=== PATIENT | female | born 1995 | race Caucasian/White ===

== ENCOUNTER 2019-05-12 11:30 | Emergency (ER) | payer OTHER ==
[2019-05-12 11:49] VITALS: BP 108/60
[2019-05-12] MEDS ORDERED: Ibuprofen ADULT LIQ* 600 MG/30 ML UDC PO ONE (12:33)
--- NOTE | 2019-05-12 12:35 | UC ---
General HPI - HPI Summary HPI Summary: pt's son ran into her R thumb this am and hyperextended it. she is c/o pain and states she is unable to bend or straighten the thumb. - History of Current Complaint Chief Complaint: UCUpperExtremity Stated Complaint: RIGHT THUMB CONCERN Time Seen by Provider: 05/12/19 12:29 Hx Obtained From: Patient Hx Last Menstrual Period: 05/08/19 Onset/Duration: Sudden Onset Timing: Constant Pain Intensity: 5 Associated Signs & Symptoms: Negative: Edema - Allergy/Home Medications Allergies/Adverse Reactions: Allergies Allergy/AdvReac Type Severity Reaction Status Date / Time No Known Allergies Allergy Verified 05/12/19 11:49 Home Medications: Home Medications NK [No Home Medications Reported] 05/12/19 [History Confirmed 05/12/19] PMH/Surg Hx/FS Hx/Imm Hx Previously Healthy: Yes - Surgical History Surgical History: Yes Surgery Procedure, Year, and Place: tonsilectomy - Family History Known Family History: Negative: Cardiac Disease, Renal Disease, Respiratory Disease - Social History Lives: With Family Alcohol Use: None Substance Use Type: None Smoking Status (MU): Heavy Every Day Tobacco Smoker Type: Cigarettes Amount Used/How Often: 1/2 pack daily Review of Systems All Other Systems Reviewed And Are Negative: No Constitutional: Negative: Fever Skin: Negative: Rash Musculoskeletal: Positive: Decreased ROM - R thumb. Negative: Edema Neurological: Negative: Paresthesia, Numbness Physical Exam Triage Information Reviewed: Yes Appearance: Well-Appearing Vital Signs: Initial Vital Signs Temp 98.1 F 05/12/19 11:42 Pulse 72 05/12/19 11:42 Resp 16 05/12/19 11:42 BP 108/60 05/12/19 11:42 Pulse Ox 99 05/12/19 11:42 Vital Signs Reviewed: Yes Cardiovascular: Positive: RRR Musculoskeletal: Positive: Other: - R hand: no gross deformity, swelling or discoloration. thumb is tender to palpation rest of hand is non tender. Thumb has passive rom but pt states unable to bend or straighten it(active rom). Thumb does not fall out of plane with other digits. Rest of hand is uhnremarkabkle and has full s/v/m function. Wrist including snuff box is non tender and rom is intact. Neurological: Positive: Alert Psychological: Positive: Age Appropriate Behavior Skin Exam: Normal Diagnostics - Radiology No standard instances Radiology Interpretation Completed By: Radiologist - IMPRESSION: No fracture of the right thumb is noted Re-Evaluation - Re-Evaluation First Eval Re-Evaluation Time: 13:06 Change: Unchanged - post xray no lateral ligament instability R thumb Course/Dx - Differential Dx - Multi-Symptom Differential Diagnoses: Other - no fx or dislocation on xray. - Diagnoses Provider Diagnosis: Sprain of right thumb Discharge ED - Sign-Out/Discharge Documenting (check all that apply): Patient Departure All imaging exams completed and their final reports reviewed: Yes - Discharge Plan Condition: Stable Disposition: HOME Patient Education Materials: Finger Sprain (ED) Referrals: Gerry Alicia MD [Medical Doctor] - As Soon As Possible Additional Instructions: WEAR THE THUMB SPICA UNTIL CLEARED BY ORTHOPEDICS - Billing Disposition and Condition Condition: STABLE Disposition: Home
== END 2019-05-12 13:16 | disposition home or self-care (01) ==
LOC: UCCORT 11:30
DX: S63.601A Unspecified sprain of right thumb, initial encounter (principal); W50.0XXA Accidental hit or strike by another person, initial encounter; Y93.89 Activity, other specified; Y92.9 Unspecified place or not applicable; F17.210 Nicotine dependence, cigarettes, uncomplicated
CPT/HCPCS: 99213; A9270-GY; G0463

== ENCOUNTER 2019-07-18 16:07 | Emergency (ER) | payer OTHER ==
[2019-07-18 16:33] VITALS: BP 97/60
--- NOTE | 2019-07-18 16:49 | UC ---
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 Pleasant 23 yo female c/o last several days, of feeling bad and achy all over. + hot / cold. No rash. ++ nausea last several days. LMP end May 2019. + cough with green sputum, hurts to cough. + tobacco. + urinary freq / urg / dysuria. 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 Pt states she has pain on right side of her chest and has been coughing which also hurts bad. Pt having lower back pain, chills, and feels nauseated. Pt states she could also be . Pt also thinks she has an UTI because she has the urge to urinate but then nothing comes out Hx Last Menstrual Period: 05/2019 Pain Intensity: 10 - Allergy/Home Medications Allergies/Adverse Reactions: Allergies Allergy/AdvReac Type Severity Reaction Status Date / Time No Known Allergies Allergy Verified 07/18/19 16:33 PMH/Surg Hx/FS Hx/Imm Hx Previously Healthy: No - childhood ashma - Surgical History Surgical History: Yes Surgery Procedure, Year, and Place: tonsilectomy - Family History Known Family History: Negative: Cardiac Disease, Renal Disease, Respiratory Disease - Social History Alcohol Use: None Substance Use Type: None Smoking Status (MU): Heavy Every Day Tobacco Smoker Type: Cigarettes Amount Used/How Often: 1/2 pack daily Review of Systems All Other Systems Reviewed And Are Negative: Yes Constitutional: Positive: Fatigue Skin: Positive: Other - see hpi Eyes: Positive: Negative ENT: Positive: Sore Throat, Nasal Discharge, Sinus Congestion Respiratory: Positive: Cough Cardiovascular: Positive: Negative Gastrointestinal: Positive: Other Genitourinary: Positive: Other Motor: Positive: Weakness Neurovascular: Positive: Negative Musculoskeletal: Positive: Other: Neurological: Positive: Negative Psychological: Positive: Negative Is Patient Immunocompromised?: No Physical Exam Triage Information Reviewed: Yes Appearance: Well-Appearing, Well-Nourished Vital Signs: Initial Vital Signs Temp 100.5 F 07/18/19 16:20 Pulse 115 07/18/19 16:20 Resp 16 07/18/19 16:20 BP 97/60 07/18/19 16:20 Pulse Ox 100 07/18/19 16:20 Vital Signs Reviewed: Yes Eye Exam: Normal ENT: Positive: Pharynx normal, Nasal congestion, TM dull Neck exam: Normal Neck: Positive: Supple, Nontender, No Lymphadenopathy Respiratory: Positive: No respiratory distress, No accessory muscle use, Rhonchi , Wheezing Cardiovascular Exam: Normal Cardiovascular: Positive: RRR, Pulses Normal, Brisk Capillary Refill Abdominal Exam: Other - +nausea without direct cvat Abdomen Description: Positive: Nontender Musculoskeletal Exam: Normal - gait steady, moves x 4 ext's Neurological Exam: Normal - grossly nonfocal Psychological Exam: Normal Skin Exam: Normal - no visible or reported rash nondiaphoretic Course/Dx - Course Course Of Treatment: Reviewed EKG (obtained d/t tachycardia, weakness as noted by RN at triage) - SR at 97 bpm. UT 167 QTc 432 Reviewed urine dip - sp 1.0152+ protein, 2+ blood, + nit, urobil 4.0 L est 3+ . See [employer] for details. UCG + Influenza a/b neg Alb neb x 1. Offered IVF's, pt adamantly declines. Will f/u PCP this week. She is aware to GO TO THE ED if sx worse or not getting better. Reviewed the above results with pt. Reviewed coa / tx plan, including need for f/u, and need for medical evaluation if worse / new problems. Questions as posed answered to the best of my ability. - Diagnoses Provider Diagnosis: , Bronchitis, Wheezing, UTI (urinary tract infection) Discharge ED - Sign-Out/Discharge Documenting (check all that apply): Patient Departure All imaging exams completed and their final reports reviewed: No Studies - Discharge Plan Condition: Improved Disposition: HOME Prescriptions: Albuterol 2.5MG/3ML (0.083%)* [Ventolin 2.5 MG/3 ML NEB.[id number]*] 2.5 mg INH Q6H PRN #25 vial PRN Reason: Wheezing Albuterol HFA INHALER* [Ventolin HFA Inhaler*] 1 - 2 puff INH Q6H PRN #1 mdi PRN Reason: Wheezing Nitrofurantoin Macrocrystals* [Macrodantin 100 mg*] 100 mg PO BID #20 cap Patient Education Materials: (ED), Effects of Smoking, Alcohol, and Medicines on (ED), Acute Bronchitis (ED), Urinary Tract Infection in (ED), Wheezing (ED) Forms: *Work Release Referrals: Marley Felder MD [Primary Care Provider] - Additional Instructions: Hydrate. PlLEASE STOP SMOKING. Urine culture in the lab. Follow up with your primary care physician EARLY THIS WEEK. Please seek medical attention for worse or new problems. - Billing Disposition and Condition Condition: IMPROVED Disposition: Home
[2019-07-18 16:56] LABS: Influenza A Molecular NEGATIVE (Negative); Influenza B Molecular NEGATIVE (Negative)
[2019-07-18] MEDS ORDERED: Albuterol 2.5 MG/3 ML NEB.SOL* (0.083%) INH ONE (17:10)
== END 2019-07-18 17:44 | disposition home or self-care (01) ==
LOC: UCCORT 16:07
DX: O99.519 Diseases of the respiratory system complicating pregnancy, unspecified trimester (principal); J40 Bronchitis, not specified as acute or chronic; R09.81 Nasal congestion; J02.9 Acute pharyngitis, unspecified; R06.2 Wheezing; O23.40 Unspecified infection of urinary tract in pregnancy, unspecified trimester; O99.330 Smoking (tobacco) complicating pregnancy, unspecified trimester; F17.210 Nicotine dependence, cigarettes, uncomplicated; Z3A.00 Weeks of gestation of pregnancy not specified
CPT/HCPCS: 81003; 84702; 87077; 87086; 87186; 99212; G0463

== ENCOUNTER 2019-09-06 13:03 | Emergency (ER) | payer OTHER ==
[2019-09-06 15:26] VITALS: BP 96/56
--- NOTE | 2019-09-06 15:47 | UC ---
Complaint Female HPI - HPI Summary HPI Summary: [id number]. Patient states that she had a urinary tract infection in July where she also found out she had a positive test. She then miscarried. 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 She stopped bleeding approximate 1-1/2 weeks following the miscarriage. She was seen in the emergency room at the time and had blood work and a sonogram. She is not on any control. She continues to be sexually active. She states today that she thinks she has the UTI back because her urine has a strong odor and she's having some frequency. She denies any fever or chills and denies any abdominal pain. - History Of Current Complaint Chief Complaint: UCGU Stated Complaint: URINARY COMPLAINT Time Seen by Provider: 09/06/19 15:07 Hx Obtained From: Patient Hx Last Menstrual Period: 07/22/19 miscarriage ?: No Onset/Duration: Gradual Onset Timing: Intermittent Severity Initially: Mild Severity Currently: Mild Pain Intensity: 0 Character: Burning Aggravating Factor(s): Urination - Allergies/Home Medications Allergies/Adverse Reactions: Allergies Allergy/AdvReac Type Severity Reaction Status Date / Time No Known Allergies Allergy Verified 09/06/19 15:15 PMH/Surg Hx/FS Hx/Imm Hx Previously Healthy: Yes - Surgical History Surgical History: Yes Surgery Procedure, Year, and Place: tonsilectomy - Family History Known Family History: Negative: Cardiac Disease, Renal Disease, Respiratory Disease - Social History Occupation: Employed Full-time Alcohol Use: Occasionally Substance Use Type: Marijuana Smoking Status (MU): Heavy Every Day Tobacco Smoker Type: Cigarettes Amount Used/How Often: 1/2 pack daily Review of Systems All Other Systems Reviewed And Are Negative: Yes Genitourinary: Positive: Dysuria, Frequency Is Patient Immunocompromised?: No Physical Exam Triage Information Reviewed: Yes Appearance: Well-Appearing, No Pain Distress, Well-Nourished Vital Signs: Initial Vital Signs Temp 98.3 F 09/06/19 15:16 Pulse 89 09/06/19 15:16 Resp 16 09/06/19 15:16 BP 96/56 09/06/19 15:16 Pulse Ox 100 09/06/19 15:16 Vital Signs Reviewed: Yes Respiratory: Positive: Lungs clear, Normal breath sounds, No respiratory distress, No accessory muscle use Cardiovascular: Positive: RRR, No Murmur, Pulses Normal, Brisk Capillary Refill Abdomen Description: Positive: Nontender, No Organomegaly, Soft. Negative: CVA Tenderness (R), CVA Tenderness (L), Distended, Guarding, Hepatomegaly, McBurney' s Point Tenderness, Splenomegaly Bowel Sounds: Positive: Present Musculoskeletal Exam: Normal Neurological Exam: Normal Psychological Exam: Normal Skin Exam: Normal Complaint Female Dx - Course Course Of Treatment: Urinalysis: Positive for nitrites Urine hCG: Positive The patient would prefer to be treated until the urine culture has returned. I did send a prescription for antibiotics to the pharmacy in case she changes her mind and I advised her of such. We did discuss the positive urine hCG and I advised her to call her [employer] HEL[employer] physician tomorrow and make an appointment to be seen. This could be left over from her miscarriage in July however it could also be that she is presently . She is not on any control and she is sexually active. I did advise her to that if she is going to continue to be sexually active, and she does not want to be , she should start using control. The patient stated she would discuss this with her primary care provider. - Differential Dx/Diagnosis Provider Diagnosis: Dysuria, Positive test - Physician Notifications Discussed Patient Care With: Fnu Seemant Time Discussed With Above Provider: 16:05 Discharge ED - Sign-Out/Discharge Documenting (check all that apply): Patient Departure All imaging exams completed and their final reports reviewed: No Studies - Discharge Plan Condition: Good Disposition: HOME Prescriptions: Cephalexin CAP* [Keflex 500 CAP*] 500 mg PO TID 10 Days #30 cap Patient Education Materials: Urinary Tract Infection in Women (DC) Referrals: Marley Felder MD [Primary Care Provider] - Additional Instructions: Your urine test today was positive. This may mean that you are presently and it may also be left over from the miscarriage you had in July. You are to call your primary care provider tomorrow and make an appointment to be seen. The antibiotic has been sent to the pharmacy in case she would change her mind about starting that. Increase fluids. - Billing Disposition and Condition Condition: GOOD Disposition: Home - Attestation Statements Provider Attestation: I was available for consult. This patient was seen by the [facility]. The patient was not presented to , seen by or examined by [facility] William Sykes MD
--- NOTE | 2019-09-09 07:37 | UC ---
- Progress Note Progress Note: Urine culture from September 06, 2019 comes back positive for Escherichia coli 75 -100,000. Patient had a positive test while in clinic. Patient was prescribed Keflex to treat the UTI however the patient because she was does not want to start the antibiotic unless the culture was positive. Nursing to call patient and inform the patient of the results and that the patient to start the antibiotics. Her untreated urinary tract infections and early can potentially increase the risk of miscarriage. Course/Dx - Diagnoses Provider Diagnoses: Dysuria, Positive test - Provider Notifications Time Discussed With Above Provider: 16:05 Discharge ED - Sign-Out/Discharge Documenting (check all that apply): Patient Departure All imaging exams completed and their final reports reviewed: No Studies - Discharge Plan Condition: Good Disposition: HOME Prescriptions: Cephalexin CAP* [Keflex 500 CAP*] 500 mg PO TID 10 Days #30 cap Patient Education Materials: Urinary Tract Infection in Women (DC) Referrals: Marley Felder MD [Primary Care Provider] - Additional Instructions: Your urine test today was positive. This may mean that you are presently and it may also be left over from the miscarriage you had in July. You are to call your primary care provider tomorrow and make an appointment to be seen. The antibiotic has been sent to the pharmacy in case she would change her mind about starting that. Increase fluids. - Billing Disposition and Condition Condition: GOOD Disposition: Home
== END 2019-09-06 16:24 | disposition home or self-care (01) ==
LOC: UCCORT 13:03
DX: O99.89 Other specified diseases and conditions complicating pregnancy, childbirth and the puerperium (principal); R30.0 Dysuria; O99.334 Smoking (tobacco) complicating childbirth; F17.210 Nicotine dependence, cigarettes, uncomplicated
CPT/HCPCS: 81003; 84702; 87077; 87086; 87186; 99211; G0463